=== PATIENT | male | born 1950 | race African-American/Black ===

== ENCOUNTER 2025-05-10 19:28 | Emergency (ER) | payer OTHER, MEDICAID ==
[~2025-05-10] VITALS: Ht 180.3 cm; Wt 90.3 kg
[2025-05-10 19:30] VITALS: TEMP 97.6
[2025-05-10 20:16] LABS: BASOPHILS % (AUTO) 0.6 % (0.0-2.0); EOSINOPHILS % (AUTO) 1.1 % (1.0-6.0); HEMATOCRIT 36.4 % (41-53); LYMPHOCYTES % (AUTO) 53.7 % (22.0-44.0); MEAN CORPUSCULAR HEMOGLOBIN 30.5 pg (26.0-34.0); MEAN CORPUSCULAR HGB CONC 32.9 G/dL (31.0-37.0); MEAN CORPUSCULAR VOLUME 93 fL (80-100); MONOCYTES % (AUTO) 7.9 % (2.0-9.0); NEUTROPHILS # (AUTO) 4.8 K/uL (1.8-7.7); NEUTROPHILS % (AUTO) 36.7 % (40.0-70.0); PLATELET COUNT (AUTO) 273 K/uL (150-450); RED BLOOD CELL COUNT(AUTO) 3.92 MIL/uL (4.50-5.90); WHITE BLOOD COUNT (AUTO) 13.1 K/uL (4.5-11.0)
[2025-05-10 20:18] LABS: ANION GAP 8 mmol/L (8-16); CALCIUM, TOTAL 8.7 mg/dL (8.8-10.5); CARBON DIOXIDE 26 mmol/L (22-29); CHLORIDE 101 mmol/L (98-107); CREATININE 1.77 mg/dL (0.60-1.30); GLOMERULAR FILTR. RATE CALC 45 mL/min (>60); GLUCOSE,RANDOM 164 mg/dL (70-110); SODIUM SERUM 135 mmol/L (136-145); UREA NITROGEN, BLOOD 18 mg/dL (7-18)
[2025-05-10 20:26] LABS: TROPONIN I-HIGH SENSITIVITY 48 ng/L (<76)
[2025-05-10 20:37] VITALS: BP 106/74; PULSE 107; RESP 18; O2SAT 96
[2025-05-10 20:37] LABS: RBC MORPHOLOGY COMMENT NORMAL RBC MORPH
== END 2025-05-10 22:40 | disposition short-term general hospital (02) ==
LOC: EMS 19:28
DX: N17.9 Acute kidney failure, unspecified (principal); R55 Syncope and collapse; I49.9 Cardiac arrhythmia, unspecified; G30.9 Alzheimer's disease, unspecified; R60.0 Localized edema
CPT/HCPCS: 71045; 80048; 82962; 83880; 84484; 85025; 93005; 99291; 36415-L1; 36415-TC